=== PATIENT | female | born 1995 | race Caucasian/White ===

== ENCOUNTER 2018-02-07 21:46 | Emergency (ER) | payer BC ==
[~2018-02-07] VITALS: Ht 175.3 cm; Wt 69.0 kg
[2018-02-07] MEDS ORDERED: IBUPROFEN 600 MG TABLET ONE (22:13)
[2018-02-07] MEDS ORDERED: ONDANSETRON ODT 4 MG ONE (22:13)
[2018-02-07 22:21] LABS: BASOPHILS # (AUTO) 0.03 x10^3/uL (0-0.1); BASOPHILS % (AUTO) 1 % (0-1); EOSINOPHILS # (AUTO) 0.21 x10^3/uL (0-0.4); EOSINOPHILS % (AUTO) 3 % (1-7); LYMPHOCYTES # (AUTO) 1.69 x10^3/uL (1-3.4); LYMPHOCYTES % (AUTO) 26 % (22-44); MD NO; MEAN CORPUSCULAR HEMOGLOBIN 31.4 pg (27.0-34.8); MEAN CORPUSCULAR HGB CONC 33.4 g/dL (32.4-35.8); MEAN CORPUSCULAR VOLUME 93.8 fL (80-100); MONOCYTES # (AUTO) 0.35 x10^3/uL (0.2-0.8); MONOCYTES % (AUTO) 5 % (2-9); NEUTROPHILS # (AUTO) 4.27 x10^3/uL (1.8-6.8); NEUTROPHILS % (AUTO) 65 % (42-75); PLATELET COUNT 236 x10^3/uL (130-400); RED BLOOD COUNT 4.33 x10^6/uL (3.82-5.3); RED CELL DISTRIBUTION WIDTH 12.8 % (9.6-15.2)
[2018-02-07] MEDS ORDERED: IBUPROFEN 200 MG TABLET PO ONE (22:30)
[2018-02-07] MEDS ORDERED: ONDANSETRON ODT 4 MG PO ONE (22:30)
[2018-02-07 22:34] LABS: ALANINE AMINOTRANSFERASE 25 U/L (12-78); ALBUMIN 3.8 g/dL (3.4-5.0); ANION GAP 8 mmol/L (5-15); CHLORIDE 109 mmol/L (98-107); CREATININE 0.76 mg/dL (0.55-1.02)
[2018-02-07 22:36] LABS: ALKALINE PHOSPHATASE 46 U/L (45-117); BILIRUBIN,TOTAL 0.3 mg/dL (0.2-1.0); TOTAL PROTEIN 6.5 g/dL (6.4-8.2)
[2018-02-07 22:41] LABS: MICROSCOPIC AUTO
[2018-02-07 22:45] LABS: CULTURE INDICATED? NO; HCG UR SG 1.012 (1.003-1.030)
[2018-02-07 23:47] VITALS: BP 104/58
== END 2018-02-07 23:49 | disposition home or self-care (01) ==
LOC: ED 23:43
DX: N94.4 Primary dysmenorrhea (principal)
CPT/HCPCS: 36415; 76830; 80053; 81001; 81025; 85025; 99285; Q0162